=== PATIENT | male | born 1970 | race Caucasian/White ===

== ENCOUNTER 2023-09-19 09:52 | Emergency (ER) | payer BC, SELFPAY ==
[2023-09-19 10:11] VITALS: BP 150/99
--- NOTE | 2023-09-19 10:55 | ED.GENMED ---
History of Present Illness
General
Chief Complaint: Ear Problem
Time Seen by Provider: 09/19/23 10:49
Travel History
Have you had any contact with someone who has COVID-19?: No
Do you have any symptoms of coronavirus? Fever > 100 degrees, chills, cough, shortness of breath, sore throat, loss of taste or smell, muscle aches, or headache?: No
History of Present Illness
History of Present Illness:
52-year-old male presents the emergency department for acute worsening of subacute left ear pain, states approximately 3 months ago he developed left ear pain and several weeks after that was treated by his primary care physician for acute otitis
media with antibiotics. He reports that the pain never quite subsided and is gradually worsening. Feels as though he is underwater. Denies any hearing loss or tinnitus. Denies any chest pain or shortness of breath. Does get occasional vertigo
episodes
Review of Systems
Review of Systems
Allergies reviewed?: Yes
All Other Systems: ROS reviewed and negative except as documented in HPI and ROS
Phy Exam
Physical Exam
Physical Exam:
GEN: Well appearing, NAD, WDWN
HEENT: Oral mucosa moist, no scleral icterus. Bilateral tympanic membranes are clear with no erythema or bulging
Cardiac: Regular rate
Lung: No respiratory distress, no tachypnea
MSK: No gross deformity or injuries
Skin: Good color, no pallor or jaundice, no rashes
Neuro: AO x3, moves all extremities freely
Psych: Calm, cooperative
Course
Vital Signs
Initial and Last Documented VS:
Initial Vital Signs
Temp Pulse Resp BP Pulse Ox
98.7 F 67 18 150/99 98
09/19/23 10:11 09/19/23 10:11 09/19/23 10:11 09/19/23 10:11 09/19/23 10:11
Last Documented Vital Signs
Temp Pulse Resp BP Pulse Ox
98.7 F 67 18 150/99 98
09/19/23 10:11 09/19/23 10:11 09/19/23 10:11 09/19/23 10:11 09/19/23 10:11
MDM/Problems Addressed
MDM/Problems Addressed:
Likely represents eustachian tube dysfunction in the setting of recent ear infection versus rhinosinusitis. Will trial a course of steroids and recommend outpatient ENT evaluation for persistent symptoms, no evidence of acute otitis media
*Critical Care Note
Total Time (30-74mins, 75-104mins- exclusive of procedures): Not Applicable
ED Attending Note
-
Portions of this chart may have been created with voice recognition software.� Occasional wrong word or��sound alike� substitutions may have occurred due to the inherent limitations of voice recognition software.
Discharge Plan
Departure
Patient Disposition: Home (Routine Discharge)
Date of Disposition: 09/19/23
Time of Disposition: 11:13
Patient with high blood pressure during this ER visit?: No
Discharge Problem:
Acute dysfunction of left eustachian tube
Instructions: Eustachian Tube Problems (DC)
Prescriptions:
New
methylprednisolone [Medrol ([place])] 4 mg tablets,dose pack
See Rx Instructions .ROUTE .COMPLEX Qty: 21 0RF
Rx Instructions:
orally per package directions
Referrals:
Dhruv Evans MD [Active] -
Interventions
Interventions:
*Nursing Disposition Last Done: 09/19/23 11:30
Discharge Date and Time
Discharge Date/Time: 09/19/23 11:31
Print Language: AUSTRIAN
== END 2023-09-19 11:31 | disposition home or self-care (01) ==
LOC: EMR 09:52
PROVIDERS: EMERGENCY PHYSICIAN Emergency Medicine
DX: H69.82 Other specified disorders of Eustachian tube, left ear (principal)
CPT/HCPCS: 99283